=== PATIENT | female | born 1990 | race Caucasian/White ===

== ENCOUNTER 2021-12-23 07:52 | Outpatient (CLI) | payer OTHER ==
[2021-12-23 08:37] LABS: BASOPHILS % (AUTO) 0.8 % (0.0-2.0); EOSINOPHILS % (AUTO) 0.6 % (0.0-4.0); HEMATOCRIT 41.3 % (36-48); HEMOGLOBIN 14.2 g/dL (12.0-16.0); LYMPHOCYTES # (AUTO) 0.9 K/uL (1.0-5.5); LYMPHOCYTES % (AUTO) 20.1 % (20.5-51.5); MEAN CORPUSCULAR HEMOGLOBIN 32 pg (27-31); MEAN CORPUSCULAR HGB CONC 34 % (32-36); MEAN CORPUSCULAR VOLUME 93 fL (79.0-98.0); MONOCYTES # (AUTO) 0.2 K/uL (0.0-1.0); MONOCYTES % (AUTO) 5.4 % (1.7-9.3); NEUTROPHILS # (AUTO) 3.3 K/uL (1.8-7.7); NEUTROPHILS % (AUTO) 73.1 % (40.0-70.0); PLATELET COUNT (AUTO) 274 K/uL (130-430); RED BLOOD CELL COUNT(AUTO) 4.46 MIL/uL (4.2-6.2); RED CELL DISTRIBUTION WIDTH 13.2 % (9.0-15.0); WHITE BLOOD COUNT (AUTO) 4.5 K/uL (4.8-10.8)
[2021-12-23 08:52] LABS: ALANINE AMINOTRANSFERASE 14 U/L (12-78); ALBUMIN 4.4 g/dL (3.4-4.8); ANION GAP 6 (5-15); ASPARTATE AMINOTRANSFERASE 13 U/L (10-37); CALCIUM 8.6 mg/dL (8.4-11.0); CHLORIDE 103 mmol/L (98-107); CHOLESTEROL 161 mg/dL (<200); CREATININE 0.56 mg/dL (0.55-1.30); GLUCOSE 89 mg/dL (70-99); HDL CHOLESTEROL 68 mg/dL (>55); LDL CHOLESTEROL 91 mg/dL (<100); POTASSIUM 3.7 mmol/L (3.5-5.1); SODIUM SERUM 135 mmol/L (136-145); TOTAL BILIRUBIN 1.2 mg/dL (0.0-1.0); TRIGLYCERIDES 19 mg/dL (30-150); UREA NITROGEN, BLOOD 12 mg/dL (8-21); URIC ACID 4.4 mg/dL (2.4-7.0)
[2021-12-23 09:22] LABS: C-REACTIVE PROTEIN QUANT < 0.2 mg/dL (0-0.5); GFR AFRICAN AMERICAN 162 mL/min (>90)
[2021-12-23 09:56] LABS: THYROID STIMULATING HORMONE 2.37 uIu/mL (0.36-3.74)
[2021-12-23 10:44] LABS: BILIRUBIN,URINE NEGATIVE (NEGATIVE); BLOOD, URINE NEGATIVE (NEGATIVE); CLARITY/URINE CLEAR (CLEAR); COLOR,URINE YELLOW (YELLOW); GLUCOSE,URINE NEGATIVE (NEGATIVE); KETONES,URINE NEGATIVE (NEGATIVE); LEUKOCYTE ESTERASE ,URINE NEGATIVE (NEGATIVE); NITRITE, URINE NEGATIVE (NEGATIVE); PH,URINE 6.5 (5.0-8.0); PROTEIN URINE NEGATIVE (NEGATIVE); UROBILINOGEN,URINE 0.2 (0.2-1.0)
[2021-12-23 11:05] LABS: ERYTHROCYTE SEDIMENTATION RATE 2 MM/HR (0-20)
[2021-12-24 08:06] LABS: COMPLEMENT C4, SERUM 34 mg/dL (12-38); HEMOGLOBIN A1C 4.9 % (4.8-5.6); RA LATEX TURBID 10.1 IU/mL (<14.0)
[2021-12-24 10:06] LABS: ANTI-NUCLEAR AB DIRECT Positive (Negative); FOLLICLE STIMULATION HORMONE 3.1 mIU/mL (.); INSULIN 5.3 uIU/mL (2.6-24.9); LUETENIZING HORMONE 3.4 mIU/mL (.); PROLACTIN 12.9 ng/mL (4.8-23.3); SMITH ABS <0.2 AI (0.0-0.9); TESTOSTERONE, TOTAL SERUM 32 ng/dL (8-60); THYROID PEROXIDASE (TPO) AB <8 IU/mL (0-34)
[2021-12-24 12:47] LABS: ANTI-DNA(DS) AB, QN 18 IU/mL (0-9)
[2021-12-27 13:06] LABS: ANTI-PARIETAL CELL AB 11.5 Units (0.0-20.0)
[2021-12-28 10:06] LABS: ANTI-MITOCHONDRIAL AB <20.0 Units (0.0-20.0); ANTI-SMOOTH MUSCLE AB 8 Units (0-19)
== END 2021-12-23 20:36 | disposition home or self-care (01) ==
LOC: SLB 07:52
PROVIDERS: ATTEND Internal Medicine
DX: E78.5 Hyperlipidemia, unspecified (principal); R73.9 Hyperglycemia, unspecified; N92.6 Irregular menstruation, unspecified; L68.0 Hirsutism; E28.2 Polycystic ovarian syndrome; M19.90 Unspecified osteoarthritis, unspecified site; M32.9 Systemic lupus erythematosus, unspecified
CPT/HCPCS: 36415; 80053; 80061; 81003; 82306; 82607; 82627; 83001; 83002; 83036; 83525; 84146; 84403; 84443; 84550; 85025; 85651-TC; 86140; 86431

== ENCOUNTER 2022-06-01 08:58 | Outpatient (CLI) | payer OTHER ==
[2022-06-01 09:43] LABS: BASOPHILS % (AUTO) 0.6 % (0.0-2.0); EOSINOPHILS % (AUTO) 0.8 % (0.0-4.0); HEMATOCRIT 39.1 % (36-48); HEMOGLOBIN 13.5 g/dL (12.0-16.0); LYMPHOCYTES # (AUTO) 1.2 K/uL (1.0-5.5); LYMPHOCYTES % (AUTO) 23.7 % (20.5-51.5); MEAN CORPUSCULAR HEMOGLOBIN 32 pg (27-31); MEAN CORPUSCULAR HGB CONC 35 % (32-36); MEAN CORPUSCULAR VOLUME 93 fL (79.0-98.0); MONOCYTES # (AUTO) 0.3 K/uL (0.0-1.0); MONOCYTES % (AUTO) 5.8 % (1.7-9.3); NEUTROPHILS # (AUTO) 3.4 K/uL (1.8-7.7); NEUTROPHILS % (AUTO) 69.1 % (40.0-70.0); PLATELET COUNT (AUTO) 248 K/uL (130-430); RED BLOOD CELL COUNT(AUTO) 4.18 MIL/uL (4.2-6.2); RED CELL DISTRIBUTION WIDTH 12.8 % (9.0-15.0); WHITE BLOOD COUNT (AUTO) 4.9 K/uL (4.8-10.8)
[2022-06-01 10:12] LABS: ALANINE AMINOTRANSFERASE 15 U/L (12-78); ANION GAP 5 (5-15); ASPARTATE AMINOTRANSFERASE 15 U/L (10-37); CALCIUM 8.6 mg/dL (8.4-11.0); CHLORIDE 103 mmol/L (98-107); CREATININE 0.61 mg/dL (0.55-1.30); GLUCOSE 87 mg/dL (70-99); TOTAL BILIRUBIN 0.7 mg/dL (0.0-1.0); UREA NITROGEN, BLOOD 10 mg/dL (8-21)
[2022-06-01 10:21] LABS: ERYTHROCYTE SEDIMENTATION RATE 2 MM/HR (0-20)
[2022-06-01 10:23] LABS: C-REACTIVE PROTEIN QUANT < 0.2 mg/dL (0-0.5); GFR AFRICAN AMERICAN 146 mL/min (>90)
== END 2022-06-01 20:24 | disposition home or self-care (01) ==
LOC: SLB 08:58
PROVIDERS: ATTEND Internal Medicine
DX: E43 Unspecified severe protein-calorie malnutrition (principal); E55.9 Vitamin D deficiency, unspecified; M32.9 Systemic lupus erythematosus, unspecified
CPT/HCPCS: 36415; 80053; 82306; 83735; 85025; 85651-TC; 86140